=== PATIENT | female | born 1990 | race Caucasian/White ===

== ENCOUNTER 2017-03-07 08:49 | Day surgery (SDC) | payer OTHER ==
[~2017-03-07] VITALS: Ht 152.4 cm; Wt 77.5 kg
[2017-03-07] MEDS ORDERED: OMEPRAZOLE (09:39)
[2017-03-07] MEDS ORDERED: LEXAPRO (09:39)
[2017-03-07 09:40] VITALS: Ht 152.4 cm; Wt 77.5 kg
[2017-03-07 10:12] VITALS: BP 116/65; PULSE 95; RESP 18
--- NOTE | 2017-03-07 10:51 | OPPN ---
Date/Time of Note Date/Time of Note DATE: 03/07/17 TIME: 10:49 Operative Report Preoperative Diagnosis Chronic heartburn History of hematemesis Postoperative Diagnosis Small hiatal hernia Gastroesophageal reflux disease Gastritis Operation/Procedure Performed Esophagogastroduodenoscopy and biopsy Provider: ALLISON REYES MD Anesthesia Type: MAC Estimated blood loss: none Transfusion Required: no Specimens Gastric mucosal biopsy Grafts/Implants: none Complications: no ALLISON REYES MD Mar 07, 2017 10:51
--- NOTE | 2017-03-07 11:24 | GILP ---
DATE OF PROCEDURE: 03/07/2017 PROCEDURE PERFORMED: Esophagogastroduodenoscopy and biopsy. SURGEON: Yani Harp MD PREOPERATIVE DIAGNOSES: 1. Chronic heartburn. 2. History of hematemesis. POSTOPERATIVE DIAGNOSES: 1. Small hiatal hernia. 2. Gastroesophageal reflux disease. 3. Gastritis with erosions. 4. Gastric mucosal biopsies were taken for Helicobacter pylori test. INDICATION: Ms. Karen Pereira is a 26-year-old female patient who was complaining of chronic heartburn and she gave history of hematemesis. The patient was scheduled for endoscopy for further evaluation. The procedure and possible complications were well explained to the patient. She understood and consented to the procedure. DESCRIPTION OF PROCEDURE: Under influence of anesthesia, the gastroscope was carefully introduced into the esophagus. Under direct vision, it was advanced to the stomach, into the pylorus, into the duodenal bulb, and descending duodenum. FINDINGS: Esophagus: The patient had a small hiatal hernia and gastroesophageal reflux disease. Stomach: She had gastritis with erosions. Gastric mucosal biopsies were taken for Helicobacter pylori test. Duodenum was normal. She tolerated the procedure very well and there were no complications from the procedure. At the end of the procedure, she was awake with stable vital signs and she was discharged home in care of her family. IMPRESSION: Please see postoperative diagnoses. PLAN: 1. Omeprazole 40 mg p.o. q.a.m. 2. Await Helicobacter pylori test report. Dictated By: MD JASON Adorno/kristel/luiza /Document#: [id number]
[2017-03-07] MEDS ORDERED: LIDOCAINE 100 MG SYRINGE ONE (11:33)
[2017-03-07] MEDS ORDERED: PROPOFOL 40 ML ONE (11:33)
== END 2017-03-07 15:09 | disposition home or self-care (01) ==
LOC: GIL 08:49
PROVIDERS: ATTEND Internal Medicine Gastroenterology
DX: K44.9 Diaphragmatic hernia without obstruction or gangrene (principal); K21.9 Gastro-esophageal reflux disease without esophagitis; K29.60 Other gastritis without bleeding
CPT/HCPCS: 43239; 84703; 87081; J2001